=== PATIENT | female | born 1995 | race Hispanic/Latino ===

== ENCOUNTER 2017-10-23 14:20 | Emergency (ER) | payer OTHER ==
[2017-10-23 14:26] VITALS: BP 146/96; PULSE 99; RESP 20; TEMP 97.2; O2SAT 98
--- NOTE | 2017-10-23 14:45 | ED PDOC ---
HPI: General Adult Time Seen by Provider: 10/23/17 14:32 Chief Complaint (Nursing): Cough, Cold, Congestion Chief Complaint (Provider): Cough, Cold, Congestion History Per: Patient History/Exam Limitations: no limitations Onset/Duration Of Symptoms: Hrs (x 48) Current Symptoms Are (Timing): Still Present Additional Complaint(s): Krupa is a 22 year old female who presents to the emergency department complaining of coughing and congestion within 48 hours. Patient reports green- sputum production. 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 Admits to taking suprafen. Denies hemoptysis, sick contacts, recent international traveling, rash, abdominal pain, nausea, vomiting, and diarrhea. PMD: No Family Provider Past Medical History Reviewed: Historical Data, Nursing Documentation, Vital Signs Vital Signs: Last Vital Signs Temp 97.2 F L 10/23/17 14:23 Pulse 99 H 10/23/17 14:23 Resp 20 10/23/17 14:23 BP 146/96 H 10/23/17 14:23 Pulse Ox 98 10/23/17 15:33 - Medical History PMH: No Chronic Diseases - Surgical History Surgical History: No Surg Hx - Family History Family History: States: Unknown Family Hx - Social History Current smoker - smoking cessation education provided: No Alcohol: None Drugs: Denies - Home Medications Home Medications: Ambulatory Orders Medication Instructions Recorded Fluticasone Propionate [Flonase] 2 spr NS DAILY PRN #1 bottle 10/23/17 Naproxen [Naprosyn] 500 mg PO BID PRN #14 tab 10/23/17 Promethazine DM [Phenergan DM 5 - 10 ml PO Q8 PRN #120 ml 10/23/17 Syrup] - Allergies Allergies/Adverse Reactions: Allergies Allergy/AdvReac Type Severity Reaction Status Date / Time No Known Allergies Allergy Verified 10/23/17 14:23 Review of Systems ROS Statement: Except As Marked, All Systems Reviewed And Found Negative ENT: Positive for: Nose Congestion Respiratory: Positive for: Cough, Sputum (Green). Negative for: Hemoptysis Gastrointestinal: Negative for: Nausea, Vomiting, Abdominal Pain, Diarrhea Skin: Negative for: Rash Physical Exam - Reviewed Nursing Documentation Reviewed: Yes Vital Signs Reviewed: Yes - Physical Exam Appears: Positive for: No Acute Distress Head Exam: Positive for: ATRAUMATIC, NORMAL INSPECTION, NORMOCEPHALIC ENT: Positive for: TM Is/Are (non-erythematous and non-bulging bilaterally), Pharyngeal Erythema. Negative for: Tonsillar Exudate, Tonsillar Swelling Cardiovascular/Chest: Positive for: Regular Rate, Rhythm Respiratory: Positive for: Normal Breath Sounds. Negative for: Rales, Wheezing , Respiratory Distress Neurologic/Psych: Positive for: Alert, Oriented (x 3) - ECG O2 Sat by Pulse Oximetry: 98 (RA) Pulse Ox Interpretation: Normal - Progress ED Course And Treament: Rapid strep, rapid flu: negative. Medical Decision Making Medical Decision Making: Time: 14:37 Plan: - Influenza A B - Rapid Strep Group Time: 15:30 Discussed results with patient. Upon provider evaluation patient is medically stable, and requires no further treatment in the ED at this time. Patient will be discharged with Rx for Flonase , Naprosyn, and Phenergan DM Syrup. Counseling was provided and all questions were answered regarding diagnosis. There is agreement to discharge plan. Return if symptoms persist or worsen. Scribe Attestation: Documented by Lewis Palomares, acting as a scribe for Kevin Dexter PA-C Provider Scribe Attestation: All medical record entries made by the Scribe were at my direction and personally dictated by me. I have reviewed the chart and agree that the record accurately reflects my personal performance of the history, physical exam, medical decision making, and the department course for this patient. I have also personally directed, reviewed, and agree with the discharge instructions and disposition. Disposition - Clinical Impression Clinical Impression: Upper respiratory infection - Patient ED Disposition Is Patient to be Admitted: No - Disposition Referrals: Celeste Isabel [Outside] Disposition: Routine/Home Disposition Time: 15:24 Condition: STABLE Additional Instructions: Drink plenty of fluids. Follow up with [facility] for further evaluation. Return to ED immediately for any concerns or questions. Prescriptions: Fluticasone Propionate [Flonase] 2 spr NS DAILY PRN #1 bottle PRN Reason: Allergy Symptoms Naproxen [Naprosyn] 500 mg PO BID PRN #14 tab PRN Reason: Pain Promethazine DM [Phenergan DM Syrup] 5 - 10 ml PO Q8 PRN #120 ml PRN Reason: Cough Instructions: Upper Respiratory Infection (ED) Forms: [facility] (German), [facility] ED School/Work Excuse Print Language: MALTESE
== END 2017-10-23 15:34 | disposition home or self-care (01) ==
LOC: H.ER 14:20
DX: J06.9 Acute upper respiratory infection, unspecified (principal)